=== PATIENT | female | born 1980 | race African-American/Black ===

== ENCOUNTER 2016-10-19 13:08 | Observation (INO) | payer OTHER ==
[~2016-10-19] VITALS: Ht 152.4 cm; Wt 100.0 kg
[~2016-10-19 13:08] MED LIST: IBUP-238 PO; PROM1SUP12 PR; PROM25SU8 PO; PROT40TA PO; Z.0.NO CURRENT MEDS
[2016-10-19 13:10] VITALS: BP 162/103; PULSE 98; RESP 20; TEMP 98.8; O2SAT 98
--- NOTE | 2016-10-19 13:18 | PD ---
Physical Exam Date Seen by Provider: October 19, 2016 Time Seen by Provider: 13:13 Narrative 36 y/o female patient presents with chest pain radiating to her back and arm for the past week. Patient denies heart burn, Fever, Nausea or vomiting. Pain is 8/10. Pain is constant. Pain worse with laying down. Has pain into Left Arm. Mild SOB Complaints. Patient noted to be Hypertensive. EKG ordered. V/S Stable Awaiting Bed Placement. Data Data Last Documented VS Vital Signs Date Time Temp Pulse Resp B/P Pulse Ox O2 Delivery O2 Flow Rate FiO2 10/19/16 13:10 98.8 98 20 162/103 98 MDM Medical Record Reviewed: Yes Supervised Visit with TIM: Yes Michael Neves October 19, 2016 13:18
[2016-10-19] MEDS ORDERED: ZOLO50TA PO (13:55)
[2016-10-19] MEDS ORDERED: SODIUM CHLORIDE 0.9% FLUSH 10 ML FLUSH IVF PRN (14:00)
[2016-10-19] MEDS ORDERED: ASPIRIN 81 MG CHEW TAB PO ONE (14:00)
[2016-10-19 14:01] VITALS: O2SAT 100
--- NOTE | 2016-10-19 14:02 | PD ---
HPI Chief Complaint: Chest Pain Time Seen by Provider: 13:56 Travel History International Travel<30 days: No Contact w/Intl Traveler<30days: No Traveled to known affect area: No History of Present Illness HPI 36-year-old female came to the emergency room with history of left-sided chest pain on and off for past 1 week. Patient had gone to see her primary care physician was trying to get an appointment with a coremaker machine to get a stress test done. However since last night she started having left arm pain and tingling. Patient got really concerned and decided to come to the emergency room to be checked out. She has been short of breath to some extent. No history of syncopal episode. Patient is not a smoker. She said there is some family history of coronary artery disease. Vital signs were within acceptable range in triage. Patient says that the pain feels like a pressure on her chest like somebody sitting on her. Currently it is 5 out of 10. PFSH Past Medical History Narrative Medical List of her past medical, surgical, social and family history was reviewed from the nursing note. Migraines: Yes ?: Not Menopausal: No : 3 Para: 3 Miscarriage: 0 Past Surgical History Section: Yes Social History Alcohol Use: No Tobacco Use: No Substance Use: No (H/O cocaine abuse, clean since 04/07) Allergies-Medications (Allergen,Severity, Reaction): Coded Allergies: Penicillin (Verified Allergy, Unknown, 10/19/16) Comments List of her allergies reviewed from the nursing note. Reported Meds & Prescriptions Reported Meds & Active Scripts Active Reported Zoloft (Sertraline HCl) 50 Mg Tab 50 Mg PO DAILY Narrative Medication List of her home medications reviewed from the nursing note. Review of Systems Except as stated in HPI: all other systems reviewed are Neg Physical Exam Narrative GENERAL: Awake, alert, obese, anxious, moderate distress SKIN: Focused skin assessment warm/dry. HEAD: Atraumatic. Normocephalic. EYES: Pupils equal and round. No scleral icterus. No injection or drainage. ENT: No nasal bleeding or discharge. Mucous membranes pink and moist. NECK: Trachea midline. No JVD. CARDIOVASCULAR: Regular rate and rhythm. No murmur appreciated. RESPIRATORY: No accessory muscle use. Clear to auscultation. Breath sounds equal bilaterally. GASTROINTESTINAL: Abdomen soft, non-tender, nondistended. Hepatic and splenic margins not palpable. MUSCULOSKELETAL: No obvious deformities. No clubbing. No cyanosis. No edema. NEUROLOGICAL: Awake and alert. No obvious cranial nerve deficits. Motor grossly within normal limits. Normal speech. PSYCHIATRIC: Appropriate mood and affect; insight and judgment normal. Data Data Last Documented VS Vital Signs Date Time Temp Pulse Resp B/P Pulse Ox O2 Delivery O2 Flow Rate FiO2 10/19/16 14:01 100 10/19/16 13:10 98.8 98 20 162/103 Orders Electrocardiogram (10/19/16 13:18) Basic Metabolic Panel (Bmp) (10/19/16 13:57) Ckmb (Isoenzyme) Profile (10/19/16 13:57) Complete Blood Count With Diff (10/19/16 13:57) Magnesium (Mg) (10/19/16 13:57) Prothrombin Time / Inr (Pt) (10/19/16 13:57) Act Partial Throm Time (Ptt) (10/19/16 13:57) Troponin I (10/19/16 13:57) Chest, Single Ap (10/19/16 13:57) Ecg Monitoring (10/19/16 13:57) Bilateral Bp Monitoring (10/19/16 13:57) Iv Access Insert/Monitor (10/19/16 13:57) Oximetry (10/19/16 13:57) Oxygen Administration (10/19/16 13:57) Aspirin Chew (Aspirin Chew) (10/19/16 14:00) Sodium Chloride 0.9% Flush (Ns Flush) (10/19/16 14:00) CKMB (10/19/16 14:00) CKMB% (10/19/16 14:00) Admit Order (Ed Use Only) (10/19/16 14:45) Labs Laboratory Tests Test 10/19/16 14:00 White Blood Count 8.9 TH/MM3 Red Blood Count 4.59 MIL/MM3 Hemoglobin 12.2 GM/DL Hematocrit 38.0 % Mean Corpuscular Volume 82.7 FL Mean Corpuscular Hemoglobin 26.5 PG Mean Corpuscular Hemoglobin 32.0 % Concent Red Cell Distribution Width 13.6 % Platelet Count 273 TH/MM3 Mean Platelet Volume 9.0 FL Neutrophils (%) (Auto) 47.9 % Lymphocytes (%) (Auto) 44.0 % Monocytes (%) (Auto) 6.3 % Eosinophils (%) (Auto) 1.0 % Basophils (%) (Auto) 0.8 % Neutrophils # (Auto) 4.3 TH/MM3 Lymphocytes # (Auto) 3.9 TH/MM3 Monocytes # (Auto) 0.6 TH/MM3 Eosinophils # (Auto) 0.1 TH/MM3 Basophils # (Auto) 0.1 TH/MM3 CBC Comment DIFF FINAL Differential Comment Prothrombin Time 10.1 SEC Prothromb Time International 0.9 RATIO Ratio Activated Partial 23.9 SEC Thromboplast Time Sodium Level 139 MEQ/L Potassium Level 3.7 MEQ/L Chloride Level 104 MEQ/L Carbon Dioxide Level 25.9 MEQ/L Anion Gap 9 MEQ/L Blood Urea Nitrogen 7 MG/DL Creatinine 0.82 MG/DL Estimat Glomerular Filtration 95 ML/MIN Rate Random Glucose 183 MG/DL Calcium Level 9.1 MG/DL Magnesium Level 2.0 MG/DL Total Creatine Kinase 400 U/L Creatine Kinase MB 1.9 NG/ML Creatine Kinase MB % 0.5 % Troponin I LESS THAN 0.02 NG/ML MDM Medical Decision Making Medical Screen Exam Complete: Yes Emergency Medical Condition: Yes Medical Record Reviewed: Yes Interpretation(s) Twelve-lead EKG was reviewed by me. Normal sinus rhythm, normal axis, inferior T wave inversions. Heart rate of 93 bpm Differential Diagnosis ACS, non-STEMI, nonspecific chest pain Narrative Course 2:02 PM patient is given 2 baby aspirin's. Awaiting for the blood test result to come back. I explained to the patient that even if all the test results come back negative she will be admitted to the chest pain center for a stress test given some of her risk factors mainly obesity and family history. Procedures EKG Prior to Arrival: Yes Diagnosis Primary Impression: Chest pain Qualified Code: R07.9 - Chest pain, unspecified type Admitting Information Admitting Physician Requests: Observation Scripts Naproxen 500 Mg [id number] Mg PO BID #20 TAB Ref 0 Prov:Renard Barbosa 10/20/16 Sangeetha Muse MD October 19, 2016 14:02 Sangeetha Muse MD October 19, 2016 14:02 Sangeetha Muse MD October 19, 2016 14:02
[2016-10-19 14:23] LABS: AUTOMATED NEUTROPHIL # 4.3 TH/MM3 (1.8-7.7); BASOPHIL # 0.1 TH/MM3 (0-0.2); BASOPHIL % 0.8 % (0.0-2.0); EOSINOPHIL # 0.1 TH/MM3 (0-0.4); HEMO FLAGS DIFF FINAL; LYMPHOCYTE # 3.9 TH/MM3 (1.0-4.8); MEAN CELL VOLUME 82.7 FL (80.0-100.0); MEAN CORPUSCULAR HEMOGLOBIN 26.5 PG (27.0-34.0); MONO % 6.3 % (0.0-8.0); NEUT % 47.9 % (16.0-70.0); PLATELET COUNT 273 TH/MM3 (150-450); RED BLOOD COUNT 4.59 MIL/MM3 (4.00-5.30); RED CELL DISTRIBUTION WIDTH 13.6 % (11.6-17.2); WHITE BLOOD COUNT 8.9 TH/MM3 (4.0-11.0)
--- NOTE | 2016-10-19 14:30 | RADRPT ---
EXAM DATE/TIME: 10/19/2016 13:56 [facility] COMPARISON: No previous studies available for comparison. INDICATIONS : Midsternal chest pressure radiating into left arm. MEDICAL HISTORY : None. SURGICAL HISTORY : None. ENCOUNTER: Initial ACUITY: 1 day PAIN SCORE: 10/10 LOCATION: Left chest FINDINGS: Portable AP view of the chest demonstrates a normal-sized cardiac silhouette. No effusion, consolidat ion, or pneumothorax is visualized. The bones and soft tissues demonstrate no acute abnormality. CONCLUSION: No acute cardiopulmonary abnormality is identified. Dave Mancini MD on October 19, 2016 at 14:28 Board Certified Radiologist. This report was verified electronically.
[2016-10-19 14:32] LABS: APTT (PATIENT) 23.9 SEC (24.3-30.1); INTERNATIONAL NORMALIZED RATIO 0.9 RATIO; PROTHROMBIN TIME - PATIENT 10.1 SEC (9.8-11.6)
[2016-10-19 14:39] LABS: ANION GAP 9 MEQ/L (5-15); BICARBONATE 25.9 MEQ/L (21.0-32.0); BLOOD UREA NITROGEN 7 MG/DL (7-18); CHLORIDE 104 MEQ/L (98-107); GLOMERULAR FILTRATION RATE 95 ML/MIN (>89); POTASSIUM 3.7 MEQ/L (3.5-5.1); SODIUM (NA) 139 MEQ/L (136-145)
[2016-10-19 14:42] LABS: CREATINE KINASE 400 U/L (26-192)
[2016-10-19 14:54] LABS: CKMB 1.9 NG/ML (0.5-3.6)
[2016-10-19 16:00] VITALS: BP 151/80; PULSE 88; RESP 20; TEMP 98.7; O2SAT 98
[2016-10-19] MEDS ORDERED: SODIUM CHLORIDE 0.9% FLUSH 5 ML FLUSH IVF PRN (16:15)
[2016-10-19] MEDS ORDERED: DEXTROSE 50% IN WATER 50 ML VIAL(D50) IV PRN (16:15)
[2016-10-19] MEDS ORDERED: GLUCAGON 1 MG/ML VIAL IM/SQ PRN (16:15)
[2016-10-19] MEDS ORDERED: ACETAMINOPHEN 500 MG CPLT PO PRN (16:15)
[2016-10-19] MEDS ORDERED: ACETAMINOPHEN/HYDROcodone 325 MG/7.5 MG TAB PO PRN (16:15)
[2016-10-19] MEDS ORDERED: ONDANSETRON HCL 4 MG/2 ML VIAL IV PRN (16:15)
--- NOTE | 2016-10-19 16:42 | HHI.HP ---
HPI Primary Care Physician No Primary Care Physician Chief Complaint chest pain History of Present Illness Patient is a 36-year-old female that presents to the ED via private vehicle complaining of discomfort is been there constantly for the past week. She states that it began last Wednesday read she was awoken with a pressure in her left upper chest, shortness of breath, palpitations and felt shaky. The chest discomfort has been persistent. Bili symptoms had resolved. She was also nauseous and diaphoretic with the symptoms. She found nothing really to worsen or improve the symptoms. Cannot recall any trauma. Denies recent illness. Denies fevers or chills. Cannot recall prior cardiac workup. Her primary care physician is Dr. Juan Dash. She states she was told by the PCPs office staff that she has diabetes but has never been put on medication. Denies hypertension, hyperlipidemia, and CAD. Denies . Review of Systems General: Patient denies fevers, chills recent, and recent travel HEENT: Patient denies headache, sore throat, difficulty swallowing. Cardiovascular: Has the chest discomfort as mentioned above. Denies sensation of heart beating rapidly or irregularly. No syncope. There was diaphoresis. Respiratory: She was short of breath initially. Denies inspirational chest discomfort. Denies coughing wheezing or hemoptysis. GI: Patient was initially nauseous. Patient denies vomiting, diarrhea, abdominal pain, bloody stools. Musculoskeletal: Patient denies joint pain or edema. Denies calf pain or edema. Neurovascular: Patient denies numbness, tingling, weakness in extremities. Denies headache. Endocrine: Denies polyuria and polydipsia. Hematologic: Denies easy bruising. Skin: Denies rash or itching. Past Family Social History Allergies: Coded Allergies: Penicillin (Verified Allergy, Unknown, 10/19/16) Past Medical History States she is recently told that she has diabetes but has never been prescribed medication. Denies hypertension, hyperlipidemia, diabetes, and CAD. Past Surgical History Two C-sections and tubal ligation. Reported Medications Reported Meds & Active Scripts Active Reported Zoloft (Sertraline HCl) 50 Mg Tab 50 Mg PO DAILY Active Ordered Medications Current Medications Medications (Trade) Dose Ordered Sig/Gala Route Start Time Stop Time Status Last Admin (NS Flush) 2 ml UNSCH PRN IVF 10/19/16 16:15 (NS Flush) 2 ml BID IVF 10/19/16 21:00 (Tylenol) 500 mg Q4H PRN PO 10/19/16 16:15 (Canova 7.5-325 Mg) 1 tab Q4H PRN PO 10/19/16 16:15 (Zofran Inj) 4 mg Q6H PRN IV 10/19/16 16:15 (Protonix) 40 mg DAILY PO 10/19/16 17:00 (Aspirin) 325 mg DAILY PO 10/20/16 09:00 (D50w (Vial) Inj) 25 ml UNSCH PRN IV 10/19/16 16:15 (Glucagon Inj) 1 mg UNSCH PRN IM/SQ 10/19/16 16:15 Family History She states that her mother is age 56 and had CHF. She is unaware of myocardial infarctions. Social History Patient is a lifetime nonsmoker denies alcohol or illicit drugs. Physical Exam Vital Signs Vital Signs Date Time Temp Pulse Resp B/P Pulse Ox O2 Delivery O2 Flow Rate FiO2 10/19/16 16:00 98.7 88 20 151/80 98 10/19/16 14:01 100 10/19/16 14:01 100 10/19/16 13:10 98.8 98 20 162/103 98 Physical Exam GENERAL: This is a well-nourished, well-developed patient, in no apparent distress. Patient speaks in clear complete sentences. Patient is pleasant. Patient was examined with a female ambulatory technologist at bedside. HEENT: Head is atraumatic and normocephalic. Neck is supple without lymphadenopathy and trachea is midline. No JVD or carotid bruits. CARDIOVASCULAR: Regular rate and rhythm without murmurs, gallops, or rubs. RESPIRATORY: The left-sided chest discomfort is easily worsened when palpating the area. Clear to auscultation. Breath sounds equal bilaterally. No wheezes, rales, or rhonchi. No use of accessory muscles. GASTROINTESTINAL: Abdomen is nontender, nondistended. Abdomen soft. No obvious pulsatile mass or bruit. No CVA tenderness. Strong femoral pulses bilaterally. Normal bowel sounds in all quadrants. MUSCULOSKELETAL: Patient is moving upper and lower extremities freely. No calf tenderness or edema, no Homans sign. Strong pulses in upper and lower extremities. NEUROLOGICAL: Patient is alert and oriented. Cranial nerves 2-12 are grossly intact. No focal deficits and speech is clear. SKIN: No rash and turgor is normal. Laboratory Laboratory Tests Test 10/19/16 14:00 White Blood Count 8.9 Red Blood Count 4.59 Hemoglobin 12.2 Hematocrit 38.0 Mean Corpuscular Volume 82.7 Mean Corpuscular Hemoglobin 26.5 Mean Corpuscular Hemoglobin 32.0 Concent Red Cell Distribution Width 13.6 Platelet Count 273 Mean Platelet Volume 9.0 Neutrophils (%) (Auto) 47.9 Lymphocytes (%) (Auto) 44.0 Monocytes (%) (Auto) 6.3 Eosinophils (%) (Auto) 1.0 Basophils (%) (Auto) 0.8 Neutrophils # (Auto) 4.3 Lymphocytes # (Auto) 3.9 Monocytes # (Auto) 0.6 Eosinophils # (Auto) 0.1 Basophils # (Auto) 0.1 CBC Comment DIFF FINAL Differential Comment Prothrombin Time 10.1 Prothromb Time International 0.9 Ratio Activated Partial 23.9 Thromboplast Time Sodium Level 139 Potassium Level 3.7 Chloride Level 104 Carbon Dioxide Level 25.9 Anion Gap 9 Blood Urea Nitrogen 7 Creatinine 0.82 Estimat Glomerular Filtration 95 Rate Random Glucose 183 Calcium Level 9.1 Magnesium Level 2.0 Total Creatine Kinase 400 Creatine Kinase MB 1.9 Creatine Kinase MB % 0.5 Troponin I LESS THAN 0.02 Result Diagram: 10/19/16 1400 10/19/16 1400 Imaging Last 48 hours Impressions Chest X-Ray 10/19/16 1357 Signed Impressions: Service Date/Time: Wednesday, October 19, 2016 13:56 - CONCLUSION: No acute cardiopulmonary abnormality is identified. Dave Mancini MD Course Initial EKG has sinus rhythm with inferior lateral T-wave changes are nonspecific. No ST segment depressions or elevations. Assessment and Plan Assessment and Plan * Chest pain: Patient's symptoms are atypical. She will continue to have serial cardiac enzymes and EKGs for ruling out purposes. She'll be seen by Dr. Boyer of cardiology in the chest pain center and at that time we'll determine further plan of care. * Diabetes: Patient states she was recently told that she has diabetes. Patient will be on sliding scale coverage. She has been instructed to follow diabetic diet and further discuss this with her primary care physician. Patient is stable at this time. She is agreeable to this plan. Renard Barbosa October 19, 2016 16:42
[2016-10-19 17:37] LABS: CREATINE KINASE 349 U/L (26-192)
[2016-10-19] MEDS: PANTOPRAZOLE SOD 40 MG DELAYED RELEASE TAB PO SCH (17:42)
[2016-10-19 17:45] LABS: BETA HCG QUANT LESS THAN 1 MIU/ML (0-5)
[2016-10-19 17:49] LABS: CKMB 1.1 NG/ML (0.5-3.6)
[2016-10-19 19:46] VITALS: BP 137/67; PULSE 84; RESP 18; TEMP 98; O2SAT 97
[2016-10-19 20:44] LABS: CREATINE KINASE 351 U/L (26-192)
[2016-10-19 20:56] LABS: CKMB 1.3 NG/ML (0.5-3.6)
[2016-10-19 21:02] VITALS: O2SAT 98
[2016-10-19] MEDS: SODIUM CHLORIDE 0.9% FLUSH 5 ML FLUSH IVF SCH (21:22)
[2016-10-19] MEDS: INSULIN ASPART SUPPLEMENTAL SCALE SQ SCH (21:23)
[2016-10-20 00:18] VITALS: BP 151/87; PULSE 97; RESP 18; TEMP 97.5; O2SAT 98
[2016-10-20 02:49] VITALS: PULSE 82
[2016-10-20 04:23] VITALS: BP 151/99; PULSE 97; RESP 18; TEMP 97.8; O2SAT 98
[2016-10-20] MEDS: INSULIN ASPART SUPPLEMENTAL SCALE SQ SCH (06:27)
[2016-10-20 07:13] VITALS: BP 148/79; PULSE 78; RESP 16; TEMP 98; O2SAT 96
[2016-10-20 07:40] VITALS: PULSE 74
--- NOTE | 2016-10-20 08:22 | EKG ---
Date Performed: 10/19/2016 Time Performed: 13:24:10 PTAGE: 36 years EKG: Sinus rhythm MODERATE T-WAVE ABNORMALITY, CONSIDER INFERIOR ISCHEMIA ABNORMAL ECG NO PREVIOUS TRACING DOCTOR: Guerita Boyer Interpretating Date/Time 10/20/2016 08:21:07
--- NOTE | 2016-10-20 08:23 | EKG ---
Date Performed: 10/19/2016 Time Performed: 19:51:01 PTAGE: 36 years EKG: Sinus rhythm MODERATE T-WAVE ABNORMALITY, CONSIDER INFERIOR ISCHEMIA ABNORMAL ECG Since PREVIOUS TRACING , no significant change noted PREVIOUS TRACIN10/19/2016 17.07 DOCTOR: Guerita Boyer Interpretating Date/Time 10/20/2016 08:22:05
--- NOTE | 2016-10-20 08:23 | EKG ---
Date Performed: 10/19/2016 Time Performed: 17:07:27 PTAGE: 36 years EKG: Sinus rhythm NONSPECIFIC T-WAVE ABNORMALITY ABNORMAL ECG Since PREVIOUS TRACING , no significant change noted PREVIOUS TRACIN10/19/2016 13.24 DOCTOR: Guerita Boyer Interpretating Date/Time 10/20/2016 08:21:43
[2016-10-20] MEDS ORDERED: NAPR500T PO (08:33)
--- NOTE | 2016-10-20 08:33 | HHI.DCPOC ---
Discharge Care Plan Diagnosis: (1) Chest pain, atypical Goals to Promote Your Health * To prevent worsening of your condition and complications * To maintain your health at the optimal level Directions to Meet Your Goals Take your medications as prescribed Follow your dietary instruction Follow activity as directed Keep your appointments as scheduled Take your immunizations and boosters as scheduled If your symptoms worsen call your PCP, if no PCP go to Urgent Care Center or Emergency Room Smoking is Dangerous to Your Health. Avoid second hand smoke Call the 24-hour hour crisis hotline for domestic abuse at Renard Barbosa October 20, 2016 08:33
[2016-10-20] MEDS: SODIUM CHLORIDE 0.9% FLUSH 5 ML FLUSH IVF SCH (08:49)
[2016-10-20] MEDS: PANTOPRAZOLE SOD 40 MG DELAYED RELEASE TAB PO SCH (08:49)
[2016-10-20] MEDS ORDERED: ASPIRIN 325 MG TAB PO SCH (09:00)
== END 2016-10-20 10:00 | disposition home or self-care (01) ==
LOC: NEPC 13:08 → NEDH 14:47 → NEPFCDU 16:02
PROVIDERS: ADMIT Internal Medicine Cardiovascular Disease; ATTEND Internal Medicine Cardiovascular Disease
DX: R07.89 Other chest pain (principal); E11.9 Type 2 diabetes mellitus without complications; Z88.0 Allergy status to penicillin; Z82.49 Family history of ischemic heart disease and other diseases of the circulatory system
CPT/HCPCS: 71010; 80048; 82550; 82552; 82948; 83735; 84484; 84702; 85025; 85610; 85730; 93005; 99285; G0378

== ENCOUNTER 2016-12-05 09:05 | Emergency (ER) | payer OTHER ==
[~2016-12-05] VITALS: Ht 154.9 cm; Wt 100.0 kg
[~2016-12-05 09:05] MED LIST changes: -IBUP-238 PO; +NAPR500T PO; -PROM1SUP12 PR; -PROM25SU8 PO; -PROT40TA PO; -Z.0.NO CURRENT MEDS; +ZOLO50TA PO
[2016-12-05 09:08] VITALS: BP 145/91; PULSE 118; RESP 18; TEMP 98.5; O2SAT 98
[2016-12-05] MEDS ORDERED: METF500T PO (09:16)
[2016-12-05] MEDS ORDERED: ZOCO20TA PO (09:16)
[2016-12-05] MEDS ORDERED: KETOROLAC TROMETHAMINE 60 MG/2 ML (IM) VIAL IM ONE (09:30)
[2016-12-05] MEDS ORDERED: CLIN1CAP6 PO (09:36)
[2016-12-05] MEDS ORDERED: NABU1TAB37 PO (09:36)
--- NOTE | 2016-12-05 09:36 | PD ---
HPI . Toothache Chief Complaint: Oral / Dental Pain or Problem Time Seen by Provider: 09:21 Travel History International Travel<30 days: No Contact w/Intl Traveler<30days: No Traveled to known affect area: No History of Present Illness HPI Patient presents with chief complaint of a toothache. Onset was about a week ago. She states that she's been taking some left over amoxicillin for 3 days. She reports no relief in her symptoms with amoxicillin, ibuprofen and Tylenol. She initially rated her pain as 10/10 but then said that it was 5/10 just a few minutes later. No exacerbating factor. PFSH Past Medical History Cardiovascular Problems: Yes High Cholesterol: Yes Diabetes: Yes Patient Takes Glucophage: Yes Diminished Hearing: No Migraines: Yes Tetanus Vaccination: > 5 Years Influenza Vaccination: No ?: Not Menopausal: No : 3 Para: 3 Miscarriage: 0 Tubal Ligation: Yes Past Surgical History Section: Yes Gynecologic Surgery: Yes (C- SECTION) Social History Alcohol Use: No (PT DENIES ) Tobacco Use: No Substance Use: No (H/O cocaine abuse, clean since 04/07) Allergies-Medications (Allergen,Severity, Reaction): Coded Allergies: Penicillin (Verified Allergy, Unknown, RASH, 12/05/16) Reported Meds & Prescriptions Reported Meds & Active Scripts Active Reported Zocor (Simvastatin) 20 Mg Tab 20 Mg PO HS Metformin (Metformin HCl) 500 Mg Tab 500 Mg PO DAILY With a meal Zoloft (Sertraline HCl) 50 Mg Tab 50 Mg PO DAILY Review of Systems General / Constitutional: No: Fever, Chills HENT: Positive: Dental Difficulties, Other (no facial swelling) Hematologic/Lymphatic: No: Lymph Node Enlargement Physical Exam Narrative GENERAL: Awake and alert and in no acute distress. SKIN: Warm and dry. HEAD: Atraumatic. Normocephalic. EYES: Pupils equal and round. ENT: Tooth #30 has dental caries and is tender to percussion. There is no edema or erythema of the surrounding gum tissue. There is no swelling of the face. NECK: Trachea midline. No cervical lymphadenopathy. CARDIOVASCULAR: Regular rate and rhythm. RESPIRATORY: No accessory muscle use. MUSCULOSKELETAL: No obvious deformities. No edema. NEUROLOGICAL: Awake and alert. No obvious cranial nerve deficits. Motor grossly within normal limits. Normal speech. PSYCHIATRIC: Appropriate mood and affect; insight and judgment normal. Data Data Last Documented VS Vital Signs Date Time Temp Pulse Resp B/P Pulse Ox O2 Delivery O2 Flow Rate FiO2 12/05/16 09:17 76 16 12/05/16 09:08 98.5 145/91 98 Orders Ketorolac Inj (Toradol Inj) (12/05/16 09:30) MDM Medical Decision Making Medical Screen Exam Complete: Yes Emergency Medical Condition: Yes Differential Diagnosis Differential diagnosis of a toothache includes but is not limited to dental caries, dental abscess, gingivitis, drug-seeking behavior. Narrative Course This patient presents complaining with a toothache. There is no evidence of dental abscess. Patient reports that her pain has been unresponsive to amoxicillin, ibuprofen and Tylenol. I will give her a prescription for Cleocin and Relafen. She is to follow-up with a dentist. She will also be instructed to use Orajel. Diagnosis Primary Impression: Toothache Patient Instructions: General Instructions, Toothache (ED) Med/Other Pt SpecificInfo: Prescription(s) given Scripts Nabumetone 500 Mg [id number] Mg PO BID #60 TAB Ref 0 Prov:Karen Fry MD 12/05/16 Clindamycin 300 Mg [id number] Mg PO Q8H 10 Days Ref 0 Prov:Karen Fry MD 12/05/16 Disposition: 01 DISCHARGE HOME Condition: Stable Karen Fry MD Dec 05, 2016 09:36
[2016-12-05 09:39] VITALS: BP 122/81; TEMP 97.8
== END 2016-12-05 09:40 | disposition home or self-care (01) ==
LOC: NEPC 09:05
DX: K08.89 Other specified disorders of teeth and supporting structures (principal); E11.9 Type 2 diabetes mellitus without complications; E78.00 Pure hypercholesterolemia, unspecified; Z88.0 Allergy status to penicillin
CPT/HCPCS: 96372; 99284; J1885

== ENCOUNTER 2017-04-21 22:15 | Emergency (ER) | payer OTHER ==
[~2017-04-21 22:15] MED LIST changes: +CLIN300C5 PO; +METF500T PO; +NABU1TAB37 PO; -NAPR500T PO; +ZOCO20TA PO
[2017-04-21 22:16] VITALS: BP 134/91; PULSE 92; RESP 16; TEMP 98; O2SAT 97
[2017-04-21] MEDS ORDERED: SODIUM CHLOR 0.9% 1000 ML INJ 1,000 ML IV SCH (22:36)
--- NOTE | 2017-04-21 22:43 | PD ---
HPI Chief Complaint: Cold / Flu Symptoms Time Seen by Provider: 22:29 Travel History International Travel<30 days: No Contact w/Intl Traveler<30days: No Traveled to known affect area: No History of Present Illness HPI Patient is a 36-year-old female who presents to emergency room with complaints of flulike symptoms for the past 4-5 days. Reports that for the past 4-5 days, she's been having myalgias, reports that she has been having fevers and chills. Patient reports that she has been feeling nauseous and has been having episodes of vomiting. Patient reports that she was seen at urgent care center yesterday and was diagnosed with flu as well as viral infection, reports that since she was 4 days out from her onset of symptoms, she was not given Tamiflu. Patient also reports that she was discharged home with a prescription for Zofran, patient reports that this has not helped with her nausea. Patient reports that she continues to feel nauseous. Patient denies abdominal pain, denies any diarrhea or constipation. Patient reports that she has had a cough which is nonproductive in nature as well as increased sinus congestion and postnasal drip. Patient denies any headache or dizziness at this time. Patient also reports that she is a diabetic currently taking metformin, reports that she noticed that her blood sugar was elevated today in the 250s, reports that her blood sugar is normally not this high. At the end of your conversation , patient endorses that she was able to keep down mashed potatoes. Patient denies any recent travels or trips, no sick contacts. PFSH Past Medical History Cardiovascular Problems: Yes High Cholesterol: Yes Diabetes: Yes Diminished Hearing: No Migraines: Yes ?: Not LMP: 04/15/17 Menopausal: No : 3 Para: 3 Miscarriage: 0 Tubal Ligation: Yes Past Surgical History Section: Yes Gynecologic Surgery: Yes (C- SECTION) Social History Alcohol Use: No (PT DENIES ) Tobacco Use: No Substance Use: No (H/O cocaine abuse, clean since 04/07) Allergies-Medications (Allergen,Severity, Reaction): Coded Allergies: penicillin G (Unverified Allergy, Unknown, RASH, 04/21/17) Reported Meds & Prescriptions Reported Meds & Active Scripts Active Nabumetone 500 Mg Tab 500 Mg PO BID Clindamycin (Clindamycin HCl) 300 Mg Cap 600 Mg PO Q8H 10 Days Reported Zocor (Simvastatin) 20 Mg Tab 20 Mg PO HS Metformin (Metformin HCl) 500 Mg Tab 500 Mg PO DAILY With a meal Zoloft (Sertraline HCl) 50 Mg Tab 50 Mg PO DAILY Review of Systems General / Constitutional: No: Fever Eyes: No: Visual changes HENT: Positive: Rhinitis, Rhinorrhea, No: Headaches Cardiovascular: No: Chest Pain or Discomfort, Palpitations Respiratory: Positive: Cough, No: Shortness of Breath Gastrointestinal: Positive: Nausea, Vomiting, No: Abdominal Pain Genitourinary: No: Urgency, Frequency, Dysuria Musculoskeletal: No: Pain Skin: No Rash Neurologic: No: Weakness Psychiatric: No: Depression Endocrine: No: Polydipsia Hematologic/Lymphatic: No: Easy Bruising Physical Exam Narrative GENERAL: NAD SKIN: Focused skin assessment warm/dry. HEAD: Atraumatic. Normocephalic. EYES: Pupils equal and round. No scleral icterus. No injection or drainage. ENT: No nasal bleeding or discharge. Mucous membranes pink and moist. NECK: Trachea midline. No JVD. CARDIOVASCULAR: Regular rate and rhythm. No murmur appreciated. RESPIRATORY: No accessory muscle use. Clear to auscultation. Breath sounds equal bilaterally. GASTROINTESTINAL: Abdomen soft, non-tender, nondistended. Hepatic and splenic margins not palpable. MUSCULOSKELETAL: No obvious deformities. No clubbing. No cyanosis. No edema. NEUROLOGICAL: Awake and alert. No obvious cranial nerve deficits. Motor grossly within normal limits. Normal speech. PSYCHIATRIC: Appropriate mood and affect; insight and judgment normal. Data Data Last Documented VS Vital Signs Date Time Temp Pulse Resp B/P (MAP) Pulse Ox O2 Delivery O2 Flow Rate FiO2 04/21/17 22:16 98.0 92 16 134/91 (105) 97 Room Air Orders Orders Influenzae A/B Antigen (04/21/17 22:27) Chest, Pa & Lat (04/21/17 22:27) Ed Urine Pregnancytest Poc (04/21/17 22:27) Complete Blood Count With Diff (04/21/17 22:36) Comprehensive Metabolic Panel (04/21/17 22:36) Prothrombin Time / Inr (Pt) (04/21/17 22:36) Act Partial Throm Time (Ptt) (04/21/17 22:36) Urinalysis - C+S If Indicated (04/21/17 22:36) Iv Access Insert/Monitor (04/21/17 22:36) Ondansetron Inj (Zofran Inj) (04/21/17 22:45) Sodium Chlor 0.9% 1000 Ml Inj (Ns 1000 M (04/21/17 22:36) Sodium Chloride 0.9% Flush (Ns Flush) (04/21/17 22:45) Famotidine Inj (Pepcid Inj) (04/21/17 22:45) Ketorolac Inj (Toradol Inj) (04/21/17 23:45) Labs Laboratory Tests Test 04/21/17 22:14 04/21/17 22:55 White Blood Count 10.2 TH/MM3 Red Blood Count 4.79 MIL/MM3 Hemoglobin 13.1 GM/DL Hematocrit 39.4 % Mean Corpuscular Volume 82.3 FL Mean Corpuscular Hemoglobin 27.4 PG Mean Corpuscular Hemoglobin Concent 33.3 % Red Cell Distribution Width 13.5 % Platelet Count 323 TH/MM3 Mean Platelet Volume 8.5 FL Neutrophils (%) (Auto) 46.1 % Lymphocytes (%) (Auto) 43.9 % Monocytes (%) (Auto) 7.9 % Eosinophils (%) (Auto) 1.4 % Basophils (%) (Auto) 0.7 % Neutrophils # (Auto) 4.7 TH/MM3 Lymphocytes # (Auto) 4.5 TH/MM3 Monocytes # (Auto) 0.8 TH/MM3 Eosinophils # (Auto) 0.1 TH/MM3 Basophils # (Auto) 0.1 TH/MM3 CBC Comment DIFF FINAL Differential Comment Prothrombin Time 10.2 SEC Prothromb Time International Ratio 0.9 RATIO Activated Partial Thromboplast Time 24.1 SEC Blood Urea Nitrogen 9 MG/DL Creatinine 0.74 MG/DL Random Glucose 110 MG/DL Total Protein 8.1 GM/DL Albumin 3.7 GM/DL Calcium Level 9.4 MG/DL Alkaline Phosphatase 67 U/L Aspartate Amino Transf (AST/SGOT) 26 U/L Alanine Aminotransferase (ALT/SGPT) 31 U/L Total Bilirubin 0.3 MG/DL Sodium Level 140 MEQ/L Potassium Level 3.9 MEQ/L Chloride Level 105 MEQ/L Carbon Dioxide Level 27.6 MEQ/L Anion Gap 7 MEQ/L Estimat Glomerular Filtration Rate 107 ML/MIN Urine Color YELLOW Urine Turbidity HAZY Urine pH 5.5 Urine Specific [place] 1.033 Urine Protein 30 mg/dL Urine Glucose (UA) NEG mg/dL Urine Ketones TRACE mg/dL Urine Occult Blood NEG Urine Nitrite NEG Urine Bilirubin NEG Urine Urobilinogen 2.0 MG/DL Urine Leukocyte Esterase NEG Urine RBC 4 /hpf Urine WBC 1 /hpf Urine Squamous Epithelial Cells 8 /hpf Urine Calcium Oxalate Crystals FEW /hpf Urine Bacteria RARE /hpf Urine Hyaline Casts 9 /lpf Urine Mucus MANY /lpf Microscopic Urinalysis Comment CULT NOT INDICATED MDM Medical Decision Making Medical Screen Exam Complete: Yes Emergency Medical Condition: Yes Medical Record Reviewed: Yes Interpretation(s) Vital Signs Date Time Temp Pulse Resp B/P (MAP) Pulse Ox O2 Delivery O2 Flow Rate FiO2 04/21/17 22:16 98.0 92 16 134/91 (105) 97 Room Air Differential Diagnosis Viral syndrome, influenza, gastroenteritis Narrative Course During the course of the patients emergency department visit, the patients history, examination, and differential diagnosis were reviewed with the patient. The patient was placed on a cable engineer outside plant with oximetry and frequent blood pressure monitoring. The patient had 20-gauge IV access obtained and blood work sent for analysis. The patient was initially provided IV fluids, IV Pepcid as well as IV Zofran The patients laboratory studies were reviewed and remarkable for: CBC & BMP Diagram 04/21/17 22:14 Total Protein 8.1, Albumin 3.7, Calcium Level 9.4, Alkaline Phosphatase 67, Aspartate Amino Transf (AST/SGOT) 26, Alanine Aminotransferase (ALT/SGPT) 31, Total Bilirubin 0.3 Last Impressions Chest X-Ray 04/21/172226 Signed Impressions: Service Date/Time: Wednesday, April 21, 2017 22:40 - CONCLUSION: No acute cardiopulmonary disease. Chele Montgomery MD Microbiology Date/Time Source Procedure Growth Status 04/21/17 23:20 Nasal Aspirate Influenza Types A,B Antigen (BARRETT) Pending Received cbc: wnl bmp: wnl, glucose 110 ua: Trace ketones, many mucous, rare bacteria, 1 white blood cell, 4 red blood cells Microbiology Date/Time Source Procedure Growth Status 04/21/17 23:20 Nasal Aspirate Influenza Types A,B Antigen (BARRETT) - Final NEGATIVE FOR FLU A AND B ANTIGEN.... Complete X-ray chest with no acute cardio pulmonary disease. Patient is feeling much better at this time. Plan to discharge patient home with follow-up with her primary care doctor, she will return to emergency room as needed. Patient feeling much better at this time. Diagnosis Primary Impression: Viral syndrome Additional Impressions: Dehydration Nausea & vomiting Patient Instructions: General Instructions Additional Instructions: Please provide patient with a copy of their lab work and studies at discharge* * Please follow up with your primary care doctor in 2-3 days Return to the ER if symptoms worsen or progress Return to the ER as needed Please drink plenty of fluids Disposition: 01 DISCHARGE HOME Condition: Stable Emily Jackson DO Apr 21, 2017 22:43
[2017-04-21] MEDS ORDERED: FAMOTIDINE 20 MG/2 ML VIAL IV PUSH ONE (22:45)
[2017-04-21] MEDS ORDERED: SODIUM CHLORIDE 0.9% FLUSH 10 ML FLUSH IV FLUSH PRN (22:45)
[2017-04-21] MEDS ORDERED: ONDANSETRON HCL 4 MG/2 ML VIAL IVP ONE (22:45)
--- NOTE | 2017-04-21 22:53 | RADRPT ---
EXAM DATE/TIME: 04/21/2017 22:40 [facility] COMPARISON: No previous studies available for comparison. INDICATIONS : Cough and flu like symptoms. MEDICAL HISTORY : None. SURGICAL HISTORY : None. ENCOUNTER: Initial ACUITY: 1 day PAIN SCORE: 4/10 LOCATION: Bilateral chest FINDINGS: PA and lateral views of the chest demonstrate the lungs to be symmetrically aerated without evidence of mass, infiltrate or effusion. The cardiomediastinal contours are unremarkable. Osseous structure s are intact. CONCLUSION: No acute cardiopulmonary disease. Chele Montgomery MD on April 21, 2017 at 22:51 Board Certified Radiologist. This report was verified electronically.
[2017-04-21] MEDS ORDERED: KETOROLAC TROMETHAMINE 30 MG/ML (IVP) VIAL IV PUSH ONE (23:45)
[2017-04-21 23:46] LABS: AUTOMATED NEUTROPHIL # 4.7 TH/MM3 (1.8-7.7); BASOPHIL # 0.1 TH/MM3 (0-0.2); BASOPHIL % 0.7 % (0.0-2.0); EOSINOPHIL # 0.1 TH/MM3 (0-0.4); EOSINOPHIL % 1.4 % (0.0-4.0); HEMATOCRIT 39.4 % (35.0-46.0); HEMO FLAGS DIFF FINAL; LYMPH % 43.9 % (9.0-44.0); LYMPHOCYTE # 4.5 TH/MM3 (1.0-4.8); MEAN CELL VOLUME 82.3 FL (80.0-100.0); MEAN CORPUSCULAR HEMOGLOBIN 27.4 PG (27.0-34.0); MEAN CORPUSCULAR HGB CONC 33.3 % (32.0-36.0); MONO % 7.9 % (0.0-8.0); NEUT % 46.1 % (16.0-70.0); PLATELET COUNT 323 TH/MM3 (150-450); RED BLOOD COUNT 4.79 MIL/MM3 (4.00-5.30); RED CELL DISTRIBUTION WIDTH 13.5 % (11.6-17.2); WHITE BLOOD COUNT 10.2 TH/MM3 (4.0-11.0)
[2017-04-21 23:54] LABS: BACTERIA, URINE RARE /hpf; BLOOD, URINE NEG (NEG); CALCIUM OXALATE CRYSTALS,URINE FEW /hpf; COMMENT (UR) CULT NOT INDICATED; CULTURE IF INDICATED CULT NOT INDICATED; GLUCOSE,URINE NEG (NEG); HYALINE CAST, URINE 9 /lpf (RARE); KETONE, URINE TRACE mg/dL (NEG); MUCUS URINE MANY /lpf (OCC); NITRITE,URINE NEG (NEG); PH, URINE 5.5 (5.0-8.5); SQUAMOUS EPITHELIAL CELL URINE 8 /hpf (0-5); URINE COLOR YELLOW (YELLW/STRAW)
[2017-04-21 23:58] LABS: ALT (GPT) 31 U/L (10-53); ANION GAP 7 MEQ/L (5-15); AST (GOT) 26 U/L (15-37); BICARBONATE 27.6 MEQ/L (21.0-32.0); BLOOD UREA NITROGEN 9 MG/DL (7-18); CHLORIDE 105 MEQ/L (98-107); GLOMERULAR FILTRATION RATE 107 ML/MIN (>89); POTASSIUM 3.9 MEQ/L (3.5-5.1); SODIUM (NA) 140 MEQ/L (136-145)
[2017-04-22 00:01] LABS: ALKALINE PHOSPHATASE 67 U/L (45-117); TOTAL BILIRUBIN ADULT 0.3 MG/DL (0.2-1.0)
[2017-04-22 00:14] LABS: APTT (PATIENT) 24.1 SEC (24.3-30.1); INTERNATIONAL NORMALIZED RATIO 0.9 RATIO; PROTHROMBIN TIME - PATIENT 10.2 SEC (9.8-11.6)
== END 2017-04-22 01:07 | disposition home or self-care (01) ==
LOC: NEPE 22:15
DX: B34.9 Viral infection, unspecified (principal); E86.0 Dehydration; R11.2 Nausea with vomiting, unspecified; E11.9 Type 2 diabetes mellitus without complications; E78.00 Pure hypercholesterolemia, unspecified
CPT/HCPCS: 71020; 80053; 81001; 84703; 85025; 85610; 85730; 87804; 96374; 96375; 99284; J1885; J2405; J7030

== ENCOUNTER 2017-06-17 03:24 | Emergency (ER) | payer OTHER ==
[2017-06-17 03:25] VITALS: BP 139/81; PULSE 105; RESP 18; TEMP 98.5; O2SAT 100
[2017-06-17 04:35] LABS: AUTOMATED NEUTROPHIL # 8.4 TH/MM3 (1.8-7.7); BASOPHIL # 0.1 TH/MM3 (0-0.2); BASOPHIL % 0.7 % (0.0-2.0); EOSINOPHIL # 0.1 TH/MM3 (0-0.4); EOSINOPHIL % 0.8 % (0.0-4.0); HEMATOCRIT 36.2 % (35.0-46.0); HEMOGLOBIN 11.8 GM/DL (11.6-15.3); LYMPHOCYTE # 3.8 TH/MM3 (1.0-4.8); MEAN CORPUSCULAR HEMOGLOBIN 26.8 PG (27.0-34.0); MEAN CORPUSCULAR HGB CONC 32.7 % (32.0-36.0); MEAN PLATELET VOLUME 8.3 FL (7.0-11.0); MONO % 5.6 % (0.0-8.0); MONOCYTE # 0.7 TH/MM3 (0-0.9); NEUT % 63.9 % (16.0-70.0); PLATELET COUNT 304 TH/MM3 (150-450); RED BLOOD COUNT 4.42 MIL/MM3 (4.00-5.30); RED CELL DISTRIBUTION WIDTH 13.6 % (11.6-17.2); WHITE BLOOD COUNT 13.1 TH/MM3 (4.0-11.0)
[2017-06-17] MEDS ORDERED: KETOROLAC TROMETHAMINE 30 MG/ML (IVP) VIAL IV PUSH ONE (04:45)
[2017-06-17] MEDS ORDERED: ONDANSETRON HCL 4 MG/2 ML VIAL IV PUSH ONE (04:45)
[2017-06-17 04:48] LABS: ALKALINE PHOSPHATASE 58 U/L (45-117); ALT (GPT) 30 U/L (10-53); TOTAL BILIRUBIN ADULT 0.6 MG/DL (0.2-1.0); TOTAL PROTEIN 7.9 GM/DL (6.4-8.2)
[2017-06-17 04:51] LABS: ALBUMIN 3.7 GM/DL (3.4-5.0); AST (GOT) 57 U/L (15-37); BICARBONATE 25.1 MEQ/L (21.0-32.0); BLOOD UREA NITROGEN 16 MG/DL (7-18); CALCIUM 8.9 MG/DL (8.5-10.1); CHLORIDE 106 MEQ/L (98-107); CREATININE 0.88 MG/DL (0.50-1.00); GLOMERULAR FILTRATION RATE 87 ML/MIN (>89); GLUCOSE,RANDOM 141 MG/DL (74-106); LIPASE 126 U/L (73-393); SODIUM (NA) 138 MEQ/L (136-145)
[2017-06-17] MEDS ORDERED: IBUP-232 PO (05:31)
[2017-06-17] MEDS ORDERED: DIPH12.5S PO (05:31)
[2017-06-17] MEDS ORDERED: GUAISYP4 PO (05:31)
--- NOTE | 2017-06-17 05:32 | PD ---
HPI Chief Complaint: GI Complaint Time Seen by Provider: 03:49 Travel History International Travel<30 days: No Contact w/Intl Traveler<30days: No Traveled to known affect area: No History of Present Illness HPI Patient complains of a few days of feverish aches chills diarrhea vomiting sore throat nasal congestion. She took [id number] medications without relief of her symptoms. She has not seen another doctor for this. Her sick contact is her daughter has a very severe sore throat. Patient is diabetic takes metformin 500 once a day otherwise healthy 36-year-old female. Nothing makes the symptoms worse nothing alleviates them the [id number] Tylenol she took does not help she comes in generalized malaise sore throat cough congestion PFSH Past Medical History Depression: Yes Cardiovascular Problems: Yes High Cholesterol: Yes Diabetes: Yes Patient Takes Glucophage: Yes Diminished Hearing: No Migraines: Yes ?: Not Menopausal: No : 3 Para: 3 Miscarriage: 0 Tubal Ligation: Yes Past Surgical History Section: Yes Gynecologic Surgery: Yes (C- SECTION) Social History Alcohol Use: No (PT DENIES ) Tobacco Use: No Substance Use: No (H/O cocaine abuse, clean since 04/07) Allergies-Medications (Allergen,Severity, Reaction): Coded Allergies: penicillin G (Unverified Allergy, Unknown, RASH, 06/17/17) Reported Meds & Prescriptions Reported Meds & Active Scripts Active Diphenhydramine Liq (Diphenhydramine HCl) 12.5 Mg/5 Ml Elix 12.5 Mg PO Q6H PRN Guaifenesin AC Liq (Guaifenesin-Codeine Liq) 100-10 Mg/5 Ml Syrp 5 Ml PO Q6H PRN Ibuprofen 600 Mg Tab 600 Mg PO Q6H PRN Reported Metformin (Metformin HCl) 500 Mg Tab 500 Mg PO DAILY With a meal Zoloft (Sertraline HCl) 50 Mg Tab 100 Mg PO DAILY Review of Systems Except as stated in HPI: all other systems reviewed are Neg General / Constitutional: Positive: Fever, Chills HENT: Positive: Headaches, Sore Throat Respiratory: Positive: Cough Gastrointestinal: Positive: Nausea, Vomiting, Diarrhea Physical Exam Narrative GENERAL: Patient looks uncomfortable with flulike symptoms SKIN: Warm and dry. HEAD: Atraumatic. Normocephalic. EYES: Pupils equal and round. No scleral icterus. No injection or drainage. ENT: No nasal bleeding or discharge. Mucous membranes pink and moist. Her posterior pharynx is red NECK: Trachea midline. No JVD. CARDIOVASCULAR: Regular rate and rhythm. RESPIRATORY: No accessory muscle use. Clear to auscultation. Breath sounds equal bilaterally. GASTROINTESTINAL: Abdomen soft, non-tender, nondistended. Hepatic and splenic margins not palpable. Percussion and palpation did not elicit any pain in her abdomen MUSCULOSKELETAL: Extremities without clubbing, cyanosis, or edema. No obvious deformities. NEUROLOGICAL: Awake and alert. No obvious cranial nerve deficits. Motor grossly within normal limits. Five out of 5 muscle strength in the arms and legs. Normal speech. PSYCHIATRIC: Appropriate mood and affect; insight and judgment normal. Data Data Last Documented VS Vital Signs Date Time Temp Pulse Resp B/P (MAP) Pulse Ox O2 Delivery O2 Flow Rate FiO2 06/17/17 06:31 06/17/17 06:31 87 18 100 06/17/17 03:25 98.5 Room Air Orders Orders Complete Blood Count With Diff (06/17/17 04:04) Comprehensive Metabolic Panel (06/17/17 04:04) Lipase (06/17/17 04:04) Influenzae A/B Antigen (06/17/17 04:30) Ketorolac Inj (Toradol Inj) (06/17/17 04:45) Ondansetron Inj (Zofran Inj) (06/17/17 04:45) Group A Rapid Strep Screen (06/17/17 05:25) Strep Culture (Group A) (06/17/17 05:26) Ed Discharge Order (06/17/17 06:20) Electrocardiogram (06/17/17 04:27) Labs Laboratory Tests Test 06/17/17 04:21 White Blood Count 13.1 TH/MM3 Red Blood Count 4.42 MIL/MM3 Hemoglobin 11.8 GM/DL Hematocrit 36.2 % Mean Corpuscular Volume 82.0 FL Mean Corpuscular Hemoglobin 26.8 PG Mean Corpuscular Hemoglobin Concent 32.7 % Red Cell Distribution Width 13.6 % Platelet Count 304 TH/MM3 Mean Platelet Volume 8.3 FL Neutrophils (%) (Auto) 63.9 % Lymphocytes (%) (Auto) 29.0 % Monocytes (%) (Auto) 5.6 % Eosinophils (%) (Auto) 0.8 % Basophils (%) (Auto) 0.7 % Neutrophils # (Auto) 8.4 TH/MM3 Lymphocytes # (Auto) 3.8 TH/MM3 Monocytes # (Auto) 0.7 TH/MM3 Eosinophils # (Auto) 0.1 TH/MM3 Basophils # (Auto) 0.1 TH/MM3 CBC Comment DIFF FINAL Differential Comment Blood Urea Nitrogen 16 MG/DL Creatinine 0.88 MG/DL Random Glucose 141 MG/DL Total Protein 7.9 GM/DL Albumin 3.7 GM/DL Calcium Level 8.9 MG/DL Alkaline Phosphatase 58 U/L Aspartate Amino Transf (AST/SGOT) 57 U/L Alanine Aminotransferase (ALT/SGPT) 30 U/L Total Bilirubin 0.6 MG/DL Sodium Level 138 MEQ/L Potassium Level 4.5 MEQ/L Chloride Level 106 MEQ/L Carbon Dioxide Level 25.1 MEQ/L Anion Gap 7 MEQ/L Estimat Glomerular Filtration Rate 87 ML/MIN Lipase 126 U/L [facility] Medical Decision Making Medical Screen Exam Complete: Yes Emergency Medical Condition: Yes Differential Diagnosis Differential diagnosis includes upper respiratory infection viral versus influenza versus strep pharyngitis versus viral illness NOS versus hyperglycemic episodes versus UTI Narrative Course Patient's flu was negative patient's labs are all within normal limits she has what seems to be a viral illness treat symptomatically discharged with Motrin and Tylenol Robitussin-AC follow-up as an outpatient Diagnosis Primary Impression: Viral syndrome Patient Instructions: General Instructions, Viral Syndrome (ED) Scripts Diphenhydramine Liq (Diphenhydramine Liq) 12.5 Mg/5 Ml Elix 12.5 MG PO Q6H Y for ALLERGIES, #1 BOTTLE 0 Refills Prov: Jose Manuel Vega MD 06/17/17 Guaifenesin-Codeine Liq (Guaifenesin AC Liq) 100-10 Mg/5 Ml Syrp 5 ML PO Q6H Y for COUGH, #1 BOTTLE 0 Refills Prov: Jose Manuel Vega MD 06/17/17 Ibuprofen (Ibuprofen) 600 Mg Tab 600 MG PO Q6H Y for Pain/Inflammation, #40 TAB 0 Refills Prov: Jose Manuel Vega MD 06/17/17 Disposition: 01 DISCHARGE HOME Condition: Good Jose Manuel Vega MD Jun 17, 2017 05:32
[2017-06-17 06:31] VITALS: BP 116/67; PULSE 87; RESP 18; O2SAT 100
--- NOTE | 2017-06-17 22:01 | EKG ---
Date Performed: 06/17/2017 Time Performed: 04:27:05 PTAGE: 36 years EKG: Sinus rhythm NONSPECIFIC T-WAVE ABNORMALITY ABNORMAL ECG PREVIOUS TRACING : 10/19/2016 19.51 Since previous tracing, no significant change noted DOCTOR: Richard Da iSlva Interpretating Date/Time 06/17/2017 22:00:17
== END 2017-06-17 06:33 | disposition home or self-care (01) ==
LOC: NEPC 03:24
DX: B34.9 Viral infection, unspecified (principal); E11.9 Type 2 diabetes mellitus without complications; F32.9 Major depressive disorder, single episode, unspecified; Z79.84 Long term (current) use of oral hypoglycemic drugs
CPT/HCPCS: 80053; 83690; 85025; 87081; 87804; 87880; 93005; 96374; 96375; 99284; J1885; J2405